=== PATIENT | male | born 1945 | race Caucasian/White ===

== ENCOUNTER 2021-04-23 07:06 | Day surgery (SDC) | payer MEDICARE ==
[~2021-04-23 07:06] MED LIST: ASPIRIN81 MG PO; CARVEDILOL25 MG PO; COQ1030 MG PO; MULTIVITAMIN1 TA1 PO; TRANDOLAPRIL PO
[2021-04-23] MEDS ORDERED: OMEPRAZOLE20 MG PO (08:33)
[2021-04-23 09:42] VITALS: BP 97/61
--- NOTE | 2021-04-24 15:27 | NUR ---
PER PHYSICIAN, PATIENT NOTIFIED OF PROCEDURE FINDINGS WRITTEN ON REPORT. VERBALIZED UNDERSTANDING OF FINDINGS AND TREATMENT REGIMEN WITH PRESCRIPTION GIVEN. STATES DOING WELL ON MEDICATIONS, TOLERATED PROCEDURE WELL, AND VOICED NO CONCERNS AT TIME OF CALL. WILL CALL OUR OFFICE WHEN FINISHED TREATMENT. PROCEDURE NOTES FORWARDED TO PCP FOR CONTINUITY OF CARE.
== END 2021-04-23 09:20 | disposition home or self-care (01) ==
LOC: ENDO 07:06 → ORM 09:00 → ENDO 09:20
PROVIDERS: ATTEND Surgery
PROC: 0DJD8ZZ Inspection of Lower Intestinal Tract, Via Natural or Artificial Opening Endoscopic (ICD-10-PCS; principal; 2021-04-23)
PROC: 0DJ08ZZ Inspection of Upper Intestinal Tract, Via Natural or Artificial Opening Endoscopic (ICD-10-PCS; 2021-04-23)
DX: K29.81 Duodenitis with bleeding (principal); K29.71 Gastritis, unspecified, with bleeding; K25.4 Chronic or unspecified gastric ulcer with hemorrhage; K44.9 Diaphragmatic hernia without obstruction or gangrene; D64.9 Anemia, unspecified; I11.0 Hypertensive heart disease with heart failure; I50.22 Chronic systolic (congestive) heart failure; E78.5 Hyperlipidemia, unspecified; I25.2 Old myocardial infarction; Z95.5 Presence of coronary angioplasty implant and graft